=== PATIENT | male | born 1975 | race Caucasian/White ===

== ENCOUNTER → 2020-04-29 | Day surgery (SDC) | payer BC ==
[2020-04-26 11:30] LABS: BASOPHILS % 0.8 % (0.0-1.0); EOSINOPHILS # (AUTO) 0.2 (0.0-0.4); EOSINOPHILS % 3.7 % (0.0-6.0); HEMATOCRIT 45.9 % (38.2-49.6); HEMOGLOBIN 15.2 g/dL (14.0-18.0); LYMPHOCYTES # (AUTO) 1.5 (1.0-3.2); LYMPHOCYTES % 29.2 % (18.0-39.1); MEAN CORPUSCULAR HEMOGLOBIN 29.7 pg (28-32); MEAN CORPUSCULAR HGB CONC 33.1 g/dL (31-35); MEAN CORPUSCULAR VOLUME 89.8 fL (81-99); MONOCYTES # (AUTO) 0.4 (0.2-0.8); MONOCYTES % 7.8 % (4.4-11.3); NEUTROPHILS % 58.1 % (38.7-80.0); PLATELET COUNT 320 x10e3/uL (140-360); RED BLOOD COUNT 5.11 x10e6/uL (4.3-5.7); RED CELL DISTRIBUTION WIDTH 12.5 % (11.7-14.4)
--- NOTE | 2020-04-26 11:49 | Diagnostic Imaging Report ---
EXAMINATION: CHEST 2 VIEWS INDICATION: Pre-operative COMPARISON: None FINDINGS: LINES/TUBES:None LUNGS:The lungs are well-inflated. No focal consolidation or pulmonary edema. PLEURA:No pleural effusion or pneumothorax. MEDIASTINUM:The cardiomediastinal silhouette appears normal in size and shape. BONES/SOFT TISSUES:No acute osseous injury. ABDOMEN:No free air under the diaphragm. IMPRESSION: No focal pneumonia or pulmonary edema. Signed by: Amaya Momin MD on 04/26/2020 11:46 AM
[2020-04-26 11:50] LABS: ALANINE AMINOTRANSFERASE 25 IU/L (0-55); ALBUMIN 3.8 g/dL (3.5-5.0); ALBUMIN/GLOBULIN RATIO 1.2 (0.8-2.0); ALKALINE PHOSPHATASE 62 IU/L (40-150); ANION GAP 11.5 mmol/L (8-16); BLOOD UREA NITROGEN 11 mg/dL (7-26); BUN/CREATININE RATIO 11 (6-25); CALCIUM 9.3 mg/dL (8.4-10.2); CARBON DIOXIDE 30 mmol/L (22-29); CHLORIDE 104 mmol/L (98-107); CREATININE, SERUM 0.98 mg/dL (0.72-1.25); EST GLOMERULAR FILTRATION RATE > 60 ML/MIN (60-); GLUCOSE 94 mg/dL (74-118); POTASSIUM 4.5 mmol/L (3.5-5.1); SODIUM 141 mmol/L (136-145)
[~2020-04-29] MED LIST: BUPIVACAINE 0.25%/EPI 30ML SDV INJ ONE; CEFTRIAXONE SOD 1 GM VIAL ONE; CLINDAMYCIN HC150 MG PO; FENTANYL CITRATE/PF 100MCG/2 ML INJ ONE; HYDROCODONE/APAP 7.5MG-325MG 1 EA TAB ONE; KETOROLAC TROMETHAMINE 30 MG/ML VIAL ONE; LIDOCAINE HCL 2% LOCAL INJ 5 ML SDV VIAL INJ ONE; LISINOPRIL10 MG PO; ONDANSETRON HCL INJ 2MG/ML 2ML 2 MG/ML VIAL ONE; PROPOFOL IV EMULSION 10 MG/ML 20 ML VIAL ONE; SEVOFLURANE INHAL SOLN 250 ML PEN BTL ONE
--- NOTE | 2020-04-29 12:51 | Operative Report ---
DATE OF PROCEDURE: 04/29/2020 SURGEON: Dangelo Jaramillo MD PREOPERATIVE DIAGNOSIS: Abscess of the left foot, rule out foreign body. POSTOPERATIVE DIAGNOSIS: Abscess of the left foot with pieces of charred wood. OPERATION PERFORMED: Exploration of the left foot with debridement of abscess of the left foot and removal of pieces of foreign body. ANESTHESIA: General. COMPLICATIONS: None. ESTIMATED BLOOD LOSS: Minimal. DESCRIPTION OF PROCEDURE: With the patient was lying in bed in the supine position, under good general anesthesia, the left foot was prepped with Betadine solution and draped in the usual manner. The whole area was then infiltrated with 0.25% Marcaine with epinephrine. The opening of the sinus tract through the abscess was then slowly and carefully debrided and enlarged and cavity was entered. There was a lot of pieces of dirt and wood present in the cavity. There was no large piece of wood that could be identified. The foot had been explored with the C-arm prior to prepping and there was no visible foreign body in the foot either. The whole area was then thoroughly inspected and slowly and carefully debrided and explored, and there was no large piece of wood present. This was all the remains of the pieces that had been removed before. After this was done, the whole area was thoroughly irrigated and the wound was then packed with 0.25-inch iodoform gauze. A dressing was applied. The sponge, lap, and needle count was correct. The patient tolerated the procedure well and returned to the recovery room in stable condition. MD JHONATHAN Cramer/MODL /[id number]
[2020-04-29 13:05] VITALS: BP 124/73
== END | disposition home or self-care (01) ==
LOC: OR 06:59
PROVIDERS: ATTEND Surgery
DX: L02.612 Cutaneous abscess of left foot (principal); S90.852A Superficial foreign body, left foot, initial encounter; I10 Essential (primary) hypertension; N20.0 Calculus of kidney; F41.9 Anxiety disorder, unspecified; F17.200 Nicotine dependence, unspecified, uncomplicated; X58.XXXA Exposure to other specified factors, initial encounter; Z88.6 Allergy status to analgesic agent; Z01.810 Encounter for preprocedural cardiovascular examination; Z01.812 Encounter for preprocedural laboratory examination; Z01.818 Encounter for other preprocedural examination; Z11.59 Encounter for screening for other viral diseases
CPT/HCPCS: 10061; 36415; 71046; 80053; 85025; 93005; J0696; J1885; J2001; J2405; J2704; J3010; U0002

== ENCOUNTER → 2020-05-20 | Day surgery (SDC) | payer BC ==
[~2020-05-20] MED LIST changes: -BUPIVACAINE 0.25%/EPI 30ML SDV INJ ONE; +BUPIVACAINE 0.5%/EPI 30 ML SDV INJ ONE; -CEFTRIAXONE SOD 1 GM VIAL ONE; +DEXAMETHASONE SOD PHOS INJ 4 MG/ML VIAL ONE; -KETOROLAC TROMETHAMINE 30 MG/ML VIAL ONE; +LIDOCAINE HCL 2% JELLY 5 ML TUBE ONE; +MIDAZOLAM HCL 2 MG/2 ML VIAL ONE
[2020-05-20 16:10] VITALS: BP 118/82
--- NOTE | 2020-05-20 16:10 | Operative Report ---
DATE OF PROCEDURE: 05/20/2020 SURGEON: Dangelo Jaramillo MD PREOPERATIVE DIAGNOSIS: Abscess of the left foot with probable wooden foreign body. POSTOPERATIVE DIAGNOSIS: Abscess of the left foot with probable wooden foreign body. OPERATIONS PERFORMED: Exploration of left foot with debridement of abscess and removal of wooden foreign body. ANESTHESIA: General. COMPLICATIONS: None. ESTIMATED BLOOD LOSS: Minimal. DESCRIPTION OF PROCEDURE: With the patient lying in bed in the supine position under general anesthesia, the left foot was prepped with Betadine solution and draped in the usual manner. The area that had been previously marked as the point of most tenderness, that whole area was then infiltrated with 0.25% Marcaine with epinephrine. An incision was made and an abscess cavity was then entered and there was a foreign body identified. At this point, the other draining abscess more distal in the foot was then debrided and the foreign body was again identified at the other end, was then removed in its entirety very easily and saved, and was later given to the patient's . After this was done, both of the wounds were then debrided copiously, irrigated with dilute Betadine solution, and the wounds were then packed with iodoform gauze. A dressing was applied. The sponge, lap, and needle counts were correct. The patient tolerated the procedure well and returned to the recovery room in stable condition. Dangelo Jaramillo MD JLR/MODL /[id number]
== END | disposition home or self-care (01) ==
LOC: OR 11:53
PROVIDERS: ATTEND Surgery
DX: L02.612 Cutaneous abscess of left foot (principal); I10 Essential (primary) hypertension; F41.9 Anxiety disorder, unspecified; Z88.6 Allergy status to analgesic agent; Z01.812 Encounter for preprocedural laboratory examination; Z11.59 Encounter for screening for other viral diseases; Z87.442 Personal history of urinary calculi; Z87.891 Personal history of nicotine dependence
CPT/HCPCS: 10060; 10120; J1100; J2001 ×2; J2250; J2405; J2704; J3010; U0002